=== PATIENT | male | born 1935 | race Caucasian/White ===

== ENCOUNTER 2024-01-09 12:32 | Outpatient (CLI) | payer MEDICARE, OTHER ==
--- NOTE | 2024-01-09 14:27 | CT Report ---
PROCEDURE: Chest WO INDICATIONS: MYCOBACTERIAL INFECT TECHNIQUE: A CT scan of the chest was performed. Intravenous contrast media was not administered. Images were re corded and evaluated at appropriate window settings. Reformats: axial MIP of the chest, coronal and s agittal. For radiation dose reduction, the following was used: automated exposure control, adjustment of mA and/or kV according to patient size. COMPARISON: None. FINDINGS: Image quality: Diagnostic. Chest wall and lower neck: No thyroid nodule which requires sonographic follow up. No axillary or sup raclavicular adenopathy by size. Lungs and pleura: Left upper lobe cavity with significant peripheral soft tissue. Diffuse tree-in-bud nodules, with associated volume loss in the lingula and right middle lobe, as well as the left upper lobe. Patchy peripheral consolidation of the lungs, most prominent in the left lower lobe. Small lef t pleural effusion. Mediastinum: Heart size is normal. No pericardial effusion. Dilated main pulmonary artery measuring 3 .6 cm. Prominent mediastinal lymph nodes. Examples include: - 1.2 cm right lower paratracheal node (series 2, image 31) -0.8 cm left upper paratracheal node (series 2, image 23). Bones: Subacute-appearing compression deformity of the L1 vertebral body. Upper Abdomen: Unremarkable. IMPRESSION: Left upper lobe cavity, diffuse tree-in-bud nodules and patchy peripheral consolidation, concerning f or mycobacterium infection. Malignancy is not entirely excluded based on the presence of nodules, enlarged mediastinal lymph node s and the left upper lobe cavity. Dilated main pulmonary artery, stress of pulmonary hypertension. Reviewed by: Jerome Peace MD on 01/09/2024 2:25 PM PDT Approved by: Jerome Peace MD on 01/09/2024 2:25 PM PDT Station ID: [id number]
== END 2024-01-09 12:33 | disposition home or self-care (01) ==
LOC: DI 12:32
PROVIDERS: ATTEND Student in an Organized Health Care Education/Training Program
DX: R91.8 Other nonspecific abnormal finding of lung field (principal); R59.0 Localized enlarged lymph nodes; I27.20 Pulmonary hypertension, unspecified; A31.8 Other mycobacterial infections

== ENCOUNTER 2024-02-22 03:07 | Outpatient (CLI) | payer MEDICARE, OTHER | END 2024-02-22 23:59 | disposition EMS.NT | LOC: EMS 03:07 | DX: S00.211A Abrasion of right eyelid and periocular area, initial encounter (principal); R51.9 Headache, unspecified; W01.198A Fall on same level from slipping, tripping and stumbling with subsequent striking against other object, initial encounter; Y93.01 Activity, walking, marching and hiking; Y92.009 Unspecified place in unspecified non-institutional (private) residence as the place of occurrence of the external cause; Z66 Do not resuscitate ==

== ENCOUNTER 2024-03-08 17:10 | Outpatient (CLI) | payer MEDICARE, OTHER | END 2024-03-08 17:11 | disposition E | LOC: EMS 17:10 | DX: I46.9 Cardiac arrest, cause unspecified (principal); Z66 Do not resuscitate ==